=== PATIENT | male | born 1995 | race Caucasian/White ===

== ENCOUNTER 2017-06-21 11:59 | Emergency (ER) | payer MEDICAID ==
[2017-06-21 12:08] VITALS: BP 135/75
--- NOTE | 2017-06-21 12:22 | UC ---
Lower Extremity/Ankle HPI - HPI Summary HPI Summary: ingrown and infected right toe nail has been like that for several weeks with waxing and waning of symptoms - History of Current Complaint Chief Complaint: UCLowerExtremity Stated Complaint: FOOT PAIN Time Seen by Provider: 06/21/17 12:21 Hx Obtained From: Patient Onset/Duration: Gradual Onset, Lasting Weeks, Still Present Severity Initially: Moderate Severity Currently: Moderate Pain Intensity: 5 Pain Scale Used: 0-10 Numeric Aggravating Factor(s): Standing, Ambulation Alleviating Factor(s): Rest Able to Bear Weight: Yes - Allergies/Home Medications Allergies/Adverse Reactions: Allergies Allergy/AdvReac Type Severity Reaction Status Date / Time No Known Allergies Allergy Verified 06/21/17 12:08 PMH/Surg Hx/FS Hx/Imm Hx Previously Healthy: Yes - Surgical History Surgical History: None - Family History Known Family History: Positive: None - Social History Occupation: Employed Part-time, Student Lives: With Family Alcohol Use: None Substance Use Type: None Smoking Status (MU): Never Smoked Tobacco Review of Systems Skin: Negative Eyes: Negative ENT: Negative Respiratory: Negative Cardiovascular: Negative Gastrointestinal: Negative Genitourinary: Negative Motor: Negative Neurovascular: Negative Musculoskeletal: Arthralgia - swollen tender right great toe Neurological: Negative Psychological: Negative All Other Systems Reviewed And Are Negative: Yes Physical Exam Triage Information Reviewed: Yes Appearance: Well-Appearing, No Pain Distress, Well-Nourished Vital Signs: Initial Vital Signs Temp 98.4 F 06/21/17 12:03 Pulse 84 06/21/17 12:03 Resp 16 06/21/17 12:03 BP 135/75 06/21/17 12:03 Pulse Ox 100 06/21/17 12:03 Vital Signs Reviewed: Yes Eye Exam: Normal Eyes: Positive: Conjunctiva Clear ENT Exam: Normal ENT: Positive: Normal ENT inspection, Hearing grossly normal. Negative: Nasal congestion, Nasal drainage, Trismus, Muffled/hoarse voice Dental Exam: Normal Neck exam: Normal Neck: Positive: Supple, Nontender Respiratory Exam: Normal Respiratory: Positive: Chest non-tender, No respiratory distress, No accessory muscle use Cardiovascular Exam: Normal Cardiovascular: Positive: RRR, Pulses Normal, Brisk Capillary Refill Musculoskeletal Exam: Normal Musculoskeletal: Positive: Strength Intact, ROM Intact, Edema @ - right great toe Neurological Exam: Normal Neurological: Positive: Alert, Muscle Tone Normal Psychological Exam: Normal Psychological: Positive: Normal Response To Family Skin Exam: Normal Skin: Positive: Other - open and draining area around nail Lower Extremity Course/Dx - Course Course Of Treatment: warm soaks, keflex, podiatry follow with pcp - Differential Dx/Diagnosis Differential Diagnosis/HQI/PQRI: Cellulitis, Other - paronychia, ingrown nail Provider Diagnoses: paronychia right great toe Discharge - Discharge Plan Condition: Stable Disposition: HOME Prescriptions: Cephalexin CAP* [Keflex CAP*] 500 mg PO QID #28 cap Patient Education Materials: Ibuprofen (By mouth), Warm Compress or Soak (ED), Paronychia (ED) Referrals: Vi Kohli DPM [Doctor of Podiatric Medicine] - Arik Gruber DPM [Doctor of Podiatric Medicine] - Leonard Rosales DPM [Doctor of Podiatric Medicine] - Laverne Choe MD [Primary Care Provider] - If Needed Additional Instructions: Follow with Podiatry for definitive treatment in next 4-5 days
== END 2017-06-21 12:51 | disposition home or self-care (01) ==
LOC: UCEAST 11:59
DX: L03.031 Cellulitis of right toe (principal)
CPT/HCPCS: 99202; G0463

== ENCOUNTER 2017-08-27 18:09 | Emergency (ER) | payer SELFPAY ==
[2017-08-27 18:30] VITALS: BP 141/92
--- NOTE | 2017-08-27 20:44 | ED ---
Lower Extremity - HPI Summary HPI Summary: Pt here w/ ingrown toenail x 2 months. Has been getting progressively worse. Red , swollen and painful. Has been soaking in warm soapy water. Denies fever, chills, numbness, tingling, weakness. Had an appt tomorrow with commis chef but just realized today his insurance is not active. - History of Current Complaint Chief Complaint: EDGeneral Stated Complaint: INGROWN TOENAIL Time Seen by Provider: 08/27/17 20:20 Hx Obtained From: Patient, Family/Knife [employer] - mom Pain Intensity: 2 - Allergies/Home Medications Allergies/Adverse Reactions: Allergies Allergy/AdvReac Type Severity Reaction Status Date / Time No Known Allergies Allergy Verified 06/21/17 12:08 PMH/Surg Hx/FS Hx/Imm Hx Previously Healthy: Yes Endocrine/Hematology History: Denies: Hx Anticoagulant Therapy, Hx Blood Disorders, Autoimmune Disease Respiratory History: Reports: Hx Asthma Neurological History: Reports: Hx Migraine - Immunization History Immunizations Up to Date: Yes Infectious Disease History: No Infectious Disease History: Denies: Traveled Outside the [place] in Last 30 Days - Family History Known Family History: Positive: Cardiac Disease - Social History Occupation: Employed Full-time Lives: With Family Alcohol Use: None Hx Substance Use: No Substance Use Type: Reports: None Hx Tobacco Use: No Smoking Status (MU): Never Smoked Tobacco Review of Systems Constitutional: Negative Negative: Fever, Chills Positive: no symptoms reported Musculoskeletal: Other - see HPI Negative: Arthralgia Skin: Other - see HPI Neurological: Negative Psychological: Normal All Other Systems Reviewed And Are Negative: Yes Physical Exam Triage Information Reviewed: Yes Vital Signs On Initial Exam: Initial Vitals Temp Pulse Resp BP Pulse Ox 99 F 80 17 141/92 99 08/27/17 18:27 08/27/17 18:27 08/27/17 18:27 08/27/17 18:27 08/27/17 18:27 Vital Signs Reviewed: Yes Appearance: Positive: Well-Appearing, No Pain Distress - at rest - worse w/ weight bearing d/t pain in Rt toe, Well-Nourished - erythema w/ edema and skin breakdown about paronychial regions of Rt hallux nail B/L - no streaking and drainage is oozing out with pressure; nail is curled into toe Skin: Positive: Warm Head/Face: Positive: Normal Head/Face Inspection Eyes: Positive: Normal, EOMI ENT: Positive: Hearing grossly normal Respiratory/Lung Sounds: Positive: Breath Sounds Present Cardiovascular: Positive: Pulses are Symmetrical in both Upper and Lower Extremities Musculoskeletal: Positive: Normal, Strength/ROM Intact Neurological: Positive: Normal, Sensory/Motor Intact Psychiatric: Positive: Normal - [place] Coma Scale Coma Scale Total: 15 Diagnostics - Vital Signs Vital Signs Temp Pulse Resp BP Pulse Ox 08/27/17 18:27 99 F 80 17 141/92 99 - Laboratory Lab Statement: Any lab studies that have been ordered have been reviewed, and results considered in the medical decision making process. Lower Extremity Course/Dx - Course Course Of Treatment: Toe cx'd. Advised supportive care and will start anbx - cx pending final results. Encouraged continued warm soapy soaks and extablishing with insurance - in the meantime, may also ask commis chef about sliding scale or payment schedule to be seen sooner. Reviewed danger s/sx of when to return to ED - Diagnoses Provider Diagnoses: Ingrowing toenail with infection Discharge - Discharge Plan Condition: Stable Disposition: HOME Prescriptions: Cephalexin CAP* [Keflex 500 CAP*] 500 mg PO TID #39 cap Ibuprofen TAB* [Motrin TAB* 600 MG] 600 mg PO Q6H PRN #20 tab PRN Reason: Pain Patient Education Materials: Ingrown Nail (ED), Paronychia (ED) Forms: *Work Release Referrals: Laverne Choe MD [Primary Care Provider] - Additional Instructions: Continue warm soapy soaks and try to express purulent drainage after each soak Use triple antibiotic ointment on toe and wrap with clean gauze after each soak Complete oral antibiotics as directed Follow-up with commis chef VIRAJ - call to inquire about sliding scale or payment schedules. It is also encouraged that you re-establish with your health insurance *If you develop streaking, fever, chills, return to ED
[2017-08-27] MEDS ORDERED: Cephalexin CAP* 500 MG PO ONE ×2 (21:25→21:34)
--- NOTE | 2017-08-28 13:48 | PN ---
Progress Note - Progress Note Date of Service: 08/27/17 Note: wound culture results obtained. MRSA negative and s. aureus positive. was treated with keflex which should be sufficient. no further action required at this time.
== END 2017-08-27 21:42 | disposition home or self-care (01) ==
LOC: ED 18:09
DX: L60.0 Ingrowing nail (principal); L08.89 Other specified local infections of the skin and subcutaneous tissue
CPT/HCPCS: 87070; 87077; 87186; 87205; 87640; 87641; 99282; A9270-GY